=== PATIENT | female | born 1985 | race Two or more races ===

== ENCOUNTER 2017-04-09 20:09 | Emergency (ER) | payer MEDICARE, OTHER ==
[~2017-04-09] VITALS: Ht 137.2 cm; Wt 86.2 kg
[2017-04-09] MEDS ORDERED: Methocarbamol 750mg tab ORAL ONE (20:45)
[2017-04-09] MEDS ORDERED: IBUPROFEN600 MG ORAL (20:53)
[2017-04-09 21:00] VITALS: BP 120/85
[2017-04-09 22:07] VITALS: BP 120/85
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
== END 2017-04-09 22:07 | disposition home or self-care (01) ==
LOC: EMR 20:55
DX: Z04.1 Encounter for examination and observation following transport accident (principal); Q90.9 Down syndrome, unspecified
CPT/HCPCS: 99283